=== PATIENT | male | born 1935 | race Caucasian/White ===

== ENCOUNTER → 2017-12-08 | Outpatient (CLI) | payer MEDICARE ==
[~2017-12-08] VITALS: Ht 180.3 cm; Wt 87.0 kg
[~2017-12-08] MED LIST: CHLORHEXIDINE GLUCONATE 2 % 1 PACK (2 CLOTHS) TOPICAL PRN; FISHCAP4 PO; LACTATED RINGER'S 1000 ML IV PRN; LISI10TA3 PO; METOPROLOL TARTRATE 25 MG TAB PO PRN; MULT1TAB PO; POVIDONE IODINE 5% (ANTISEPSIS KIT) 4 APPLICATIONS EACH NARE PRN; SODIUM CHLORID 0.9% 500 ML IV PRN
[2017-12-08 11:24] VITALS: TEMP 97.6
--- NOTE | 2017-12-08 11:46 | PD.PROCEDR ---
GI Procedure PROCEDURE PERFORMED EGD with biopsies followed by endoscopic ultrasound INDICATION FOR PROCEDURE Dilated pancreatic duct PROCEDURE: The procedure, risks and benefits were discussed with Patient/POA and informed consent was obtained. Anesthesia sedated Patient with Diprivan. Patient was placed in the left lateral decubitus position. EGD: The Pentax videoscope was introduced through the oropharynx and advanced to the second portion of the duodenum under direct visualization. Retroflexion was performed in the stomach. FINDINGS: The esophagus there was distal esophageal mucosal erythema suggestive of reflux esophagitis grade B, at the GE junction was a mild to moderate Schatzki ring the esophagitis was biopsied for further evaluation The stomach there was a small to medium size hiatal hernia the patient was noted to have several small gastric body nodules these were biopsied there all benign looking patient was also noted to have patchy erythema in the antrum suggestive of gastritis this was biopsied The duodenum there was patchy erythema in the duodenal bulb of unclear significance this was biopsied EUS: The Pentax videoscope was introduced through the oropharynx and advanced to the second portion of the duodenum . FINDINGS: The pancreatic parenchyma appeared to be unremarkable with normal limits from head to tail Pancreatic duct appeared to be unremarkable with normal limits measuring her at about 2 mm from head to tail The common bile duct appeared to be unremarkable with normal limits with no filling defects The gallbladder did show gallstones otherwise unremarkable No lymphadenopathy noted ESTIMATED BLOOD LOSS: None SPECIMENS REMOVED: Esophageal, gastric, duodenal biopsies COMPLICATIONS: None IMPRESSION: Reflux esophagitis grade B Schatzki ring Hiatal hernia Gastritis Gastric nodules Duodenitis Cholelithiasis PLAN: Await biopsies Recommend Protonix 40 mg daily Follow-up in clinic in 3-4 weeks Reflux diet Guille Gu MD December 08, 2017 11:46
[2017-12-08 12:10] VITALS: BP 160/81; PULSE 74; RESP 18; O2SAT 99
--- NOTE | 2017-12-09 07:26 | EKG ---
Date Performed: 12/08/2017 Time Performed: 08:38:37 PTAGE: 82 years EKG: Sinus rhythm RIGHT BUNDLE BRANCH BLOCK ABNORMAL ECG PREVIOUS TRACING : 12/26/2001 12.42 DOCTOR: Kendra Valencia Interpretating Date/Time 12/09/2017 07:21:43
== END ==
LOC: HSDC 07:52
PROVIDERS: ATTEND Internal Medicine Gastroenterology
DX: K80.80 Other cholelithiasis without obstruction (principal); K21.0 Gastro-esophageal reflux disease with esophagitis; K44.9 Diaphragmatic hernia without obstruction or gangrene; K22.2 Esophageal obstruction; K29.50 Unspecified chronic gastritis without bleeding; K31.7 Polyp of stomach and duodenum; Z01.810 Encounter for preprocedural cardiovascular examination
CPT/HCPCS: 43242; 88305; 88312; 93005